=== PATIENT | male | born 1950 | race Caucasian/White ===

== ENCOUNTER → 2016-11-12 | Outpatient (CLI) | payer BC ==
[~2016-11-12] MED LIST: CHOL20009 PO; FERROUS SULFATE PO; MULT-506 PO; TAMS0.4C59 PO
[2016-11-12 11:07] LABS: HEMATOCRIT 37.6 % (42-52); MEAN CELL VOLUME 90.4 fL (80-100); MEAN CORPUSCULAR HEMOGLOBIN 31.7 pg (25-34); MEAN CORPUSCULAR HGB CONC 35.1 g/dl (32-36); MEAN PLATELET VOLUME 9.9 fL (7.4-10.4); PLATELET COUNT 230 K/uL (130-400); RED BLOOD COUNT 4.16 M/uL (4.7-6.1); WHITE BLOOD COUNT 3.98 K/uL (4.8-10.8)
[2016-11-12 11:18] LABS: ALT/SGPT 29 U/L (12-78); BLOOD UREA NITROGEN 14 mg/dl (7-18); CALCIUM 8.6 mg/dl (8.5-10.1); CARBON DIOXIDE 29 mmol/L (21-32); CHLORIDE 106 mmol/L (98-107); CHOLESTEROL 165 mg/dl (0-200); GLUCOSE 71 mg/dl (70-99); SODIUM 143 mmol/L (136-145); TRIGLYCERIDES 59 mg/dl (0-150); VERY LOW DENSITY LIPOPROT CALC 12 mg/dl
[2016-11-12 11:22] LABS: ALKALINE PHOSPHATASE 79 U/L (45-117); AST/SGOT 26 U/L (15-37); CHOLESTEROL/HDL RATIO 2.7; FERRITIN 30.3 ng/ml (8.0-388.0); HDL CHOLESTEROL 62 mg/dl; LDL CHOLESTEROL CALCULATED 91 mg/dl
[2016-11-12 11:44] LABS: BASO ABS # 0.14 K/uL (0-0.2); BASOPHIL % 3.5 % (0-2); COMPLETE YES; EOSINOPHIL % 0.9 %; LYMPH ABS # 1.14 K/uL (1.2-3.4); LYMPHOCYTE % 28.7 %; NEUTROPHILS % 39.1 %
== END | disposition home or self-care (01) ==
LOC: C.LAB1850 09:55
PROVIDERS: ATTEND Family Medicine
DX: K90.0 Celiac disease (principal); R19.4 Change in bowel habit; Z13.220 Encounter for screening for lipoid disorders

== ENCOUNTER → 2017-10-17 | Outpatient (CLI) | payer BC, OTHER | END | disposition home or self-care (01) | LOC: C.RDSM 13:05 | PROVIDERS: ATTEND Family Medicine Sports Medicine | DX: M25.512 Pain in left shoulder (principal) ==

== ENCOUNTER → 2017-12-29 | Outpatient (CLI) | payer OTHER | END | disposition home or self-care (01) | LOC: C.LAB1850 13:57 | PROVIDERS: ATTEND Family Medicine | DX: N40.0 Benign prostatic hyperplasia without lower urinary tract symptoms (principal) ==